=== PATIENT | female | born 1960 | race Caucasian/White ===

== ENCOUNTER 2025-04-24 17:00 | Emergency (ER) | payer OTHER, SELFPAY ==
--- NOTE | ~2025-04-24 | CT_ITS ---
CLINICAL HISTORY: right flank pain CT abdomen and pelvis without contrast Comparison: None provided Findings: The lung bases are clear. Status post cholecystectomy. Solid organs are within normal limits. A punctate nonobstructing stone is noted within the left kidney midpole. No hydronephrosis. No bowel obstruction, pneumoperitoneum, or pneumatosis. Scattered diverticulosis of the descending and sigmoid colon without evidence of diverticulitis. Pelvic contents unremarkable. Normal appendix. The bones are intact. IMPRESSION: No acute findings. A punctate nonobstructing stone is noted within the left kidney midpole. No hydronephrosis bilaterally. Descending and sigmoid colon diverticulosis without evidence of diverticulitis. This document has been electronically signed by: Yariel Mai MD on 04/24/2025 18:46:22
[2025-04-24 17:05] VITALS: BP 156/69; PULSE 75; RESP 20; TEMP 36.4; O2SAT 99; BMI 26.1
--- NOTE | 2025-04-24 17:19 | ED.GENADULT ---
HPI - General Adult General Chief complaint: Abdominal Pain Stated complaint: right flank pain for 24-36 hours/kidney stones? Time Seen by Provider: 04/24/25 21:04 Source: patient Limitations: no limitations History of Present Illness ED Provider: Quita Thomas PA-C HPI narrative: 64-year-old female with a history of asthma presents with right low back pain x1 day. While at work, the patient developed spontaneous right-sided low back pain with radiation around the right lower flank. Pain worse with movement, and she is having spontaneous associated spasm like pain. Denies radiation of pain down the lower extremity, paresthesia, weakness of lower extremity, urinary retention or bowel incontinence. Related Data Previous Rx's ?Medication ?Instructions ?Recorded ketorolac 10 mg tablet 10 mg PO Q6H PRN pain #20 tabs 04/24/25 methocarbamol 750 mg tablet 1,500 mg (2 x 750 mg) PO Q8H PRN 04/24/25 pain, moderate #24 tabs Allergies Allergy/AdvReac Type Severity Reaction Status Date / Time Iodinated Contrast Media Allergy Unknown VOMITING Verified 04/24/25 17:09 (IVP DYE) IVP dye Allergy Unknown vomiting Uncoded 09/16/24 12:19 Review of Systems Review of Systems: Yes all other systems are reviewed and are negative Constitutional: Constitutional: Denies fatigue and Denies fever(s) Cardiovascular: Cardiovascular: Denies chest pain and Denies dyspnea Respiratory: Respiratory: Denies dyspnea Gastrointestinal: Gastrointestinal: Denies constipation, Denies diarrhea, Denies nausea and Denies vomiting Genitourinary: Genitourinary: Denies hematuria, Denies dysuria and Reports flank pain Musculoskeletal: Musculoskeletal: Reports back pain, Denies muscle weakness, Denies numbness, Denies radiating pain into limb and Denies tingling Neurologic: Denies numbness and Denies tingling Endocrine: Endocrine: Denies fatigue [facility] Past Medical History Attestation statement: The following information was validated with the patient. Social History Social History (System 09/16/24 @ 12:19 by An Finney) Advance Directives: No Advance Directives Information Provided: No Do you have a plan to hurt others: No Plan Physical Exam ED Vital Signs: Vital Signs - 24 hr 04/24/25 17:05 04/24/25 21:25 Temperature 97.5 F 97.4 F Pulse Rate 75 68 Respiratory Rate 20 20 Blood Pressure 156/69 H 173/65 H Pulse Oximetry 99 99 Oxygen Delivery Method Room Air Room Air BMI result Body Mass Index 26.1 Const Other: Alert, appears uncomfortable Orientation/consciousness: patient oriented x3 Resp Effort & Inspection: normal respiratory effort Cardio Other: Normal peripheral perfusion Skin Other: Warm dry no rash Neuro General: patient oriented x3, gait normal, no focal motor deficits and CN's II-XI intact bilaterally Psych Other: Cooperative Course Course Course Narrative: Medical screening exam performed. Please refer to detailed history, exam, evaluation, and management by primary provider. No history of kidney stones. Check labs and CT. Medications Administered Discontinued Medications Generic Name Dose Route Start Last Admin Trade Name Freq PRN Reason Stop Dose Admin Ketorolac Tromethamine 15 mg 04/24/25 21:46 04/24/25 22:05 Ketorolac Tromethamine 15 Mg/Ml Vial IM 04/24/25 21:47 15 mg ONCE ONE Administration Methocarbamol 1,500 mg 04/24/25 21:46 04/24/25 22:06 Methocarbamol 750 Mg Tablet PO 04/24/25 21:47 1,500 mg ONCE ONE Administration Medical Decision Making Medical Decision Making [facility] Narrative: 64-year-old female with a history of asthma presents with right low back pain x1 day. While at work, the patient developed spontaneous right-sided low back pain with radiation around the right lower flank. Pain worse with movement, and she is having spontaneous associated spasm like pain. Denies radiation of pain down the lower extremity, paresthesia, weakness of lower extremity, urinary retention or bowel incontinence. No chronic issues History: Per patient I have considered the following differential diagnoses: Lumbar strain, lumbar radiculopathy, cauda equina, compression fracture , renal colic, pyelonephritis, urinary tract infection Plan: The patient discomfort is consistent with musculoskeletal strain, she is having spasm like pain as well. She is not having any radicular symptoms, she has no red flag signs symptoms concerning for cord compression. Screening labs including urinalysis and CT scan of the abdomen and pelvis obtained from triage. No evidence of urinary pathology, unremarkable CT scan of the abdomen. I have independently reviewed the following tests: Labs: No leukocytosis, not anemic, urine not infected CT abdomen and pelvis:MPRESSION: No acute findings. A punctate nonobstructing stone is noted within the left kidney midpole. No hydronephrosis bilaterally. Descending and sigmoid colon diverticulosis without evidence of diverticulitis. Differential Diagnosis Differential Diagnoses: The differential diagnosis associated with the presentation includes See medical decision-making Admission/Observation Consideration of admission/observation: Escalation of care including admission/observation considered Not applicable Lab Data MDM Lab Attestation statement: I reviewed the patient's lab results. 04/24/25 18:37 04/24/25 17:44 Labs: Lab Results 04/24/25 04/24/25 Range/Units 17:44 18:37 WBC 8.6 (4.8-10.8) X10*3/uL RBC 4.68 (4.20-5.50) X10*6/uL Hgb 14.2 (12.0-16.0) g/dl Hct 40.3 (37.0-47.0) % MCV 86.1 (80.0-98.0) fL MCH 30.3 (27.0-33.0) pg MCHC 35.2 H (31.0-35.0) g/dl RDW 12.9 (11.0-16.0) % Plt Count 288 (160-400) X10*3/uL MPV 10.1 (9.4-12.3) fL Immature Gran % (Auto) 0.8 H (0.0-0.4) % Neut % (Auto) 45.4 (45-73) % Lymph % (Auto) 42.5 H (20-40) % Craven % (Auto) 7.1 (2-11) % Eos % (Auto) 3.4 (0-4) % Baso % (Auto) 0.8 (0-2) % Lymph # (Auto) 3.7 (1.2-4.9) X10*3/uL Craven # (Auto) 0.6 (0.1-1.2) X10*3/uL Eos # (Auto) 0.3 (0.0-0.4) X10*3/uL Baso # (Auto) 0.1 (0.0-0.2) X10*3/uL Abs Immat Gran (auto) 0.07 H (0.00-0.03) X10*3/uL Absolute Neuts (auto) 3.9 (2.0-8.3) x10*3/uL Absolute Nucleated RBC 0.000 (0.0-0.012) X10*3/uL Nucleated RBC % (auto) 0.0 (0.0-0.2) /100WBC Sodium 140 (135-145) mmol/L Potassium 4.0 (3.3-5.1) mmol/L Chloride 108 (96-108) mmol/L Carbon Dioxide 22 (22-29) mmol/L Anion Gap 14 (12-20) BUN 12 (9-16) mg/dL Creatinine 0.68 (0.5-1.4) mg/dL Estim Creat Clear Calc 81.9 Estimated GFR > 60 Random Glucose 107 (60-115) mg/dL Calcium 8.9 (8.4-10.2) mg/dL Total Bilirubin 0.4 (0.0-1.0) mg/dL Direct Bilirubin 0.1 (0.0-0.5) mg/dL AST 31 (5-31) U/L ALT 28 (0-31) U/L Alkaline Phosphatase 116 (39-117) U/L Total Protein 7.5 (6.5-8.0) g/dL Albumin 4.2 (3.5-5.0) g/dL Lipase 19 (8-78) U/L Urine Color Yellow Urine Appearance Clear Urine pH 6.0 (5.0-9.0) Ur Specific [place] 1.020 (1.005-1.025) Urine Protein Negative (Neg-Trace) mg/dL Urine Glucose (UA) Negative (Negative) mg/dL Urine Ketones Negative (Negative) mg/dL Urine Blood Negative (Negative) Urine Nitrite Negative (Negative) Ur Leukocyte Esterase Negative (Negative) Radiology Impression Discussion of test interpretation with radiology: I have reviewed the radiologist's reading. Discharge Plan Discharge Clinical Impression: Right lumbar pain Patient Disposition: Home, Self-Care Instructions: Acute Low Back Pain (ED) Additional Instructions: All of your screening labs were normal, your urine is not infected. There were no abnormalities noted on the CT scan of the abdomen and pelvis. Your pain at this point seems to be most consistent with musculoskeletal strain. See home care instructions. Use the ketorolac as directed this is an anti-inflammatory take it with food. Use the methocarbamol as needed for further pain, this is a muscle relaxant. This medication will cause drowsiness, do not drive or operate machinery while taking the medication. Prescriptions: New ketorolac 10 mg tablet 10 mg PO Q6H PRN (Reason: pain) Qty: 20 0RF Rx Instructions: maximum total duration of 5 days from all oral, intranasal, or parenteral formulations. The patient received an intramuscular dose of Toradol here in the emergency room. methocarbamol 750 mg tablet 1,500 mg PO Q8H PRN (Reason: pain, moderate) Qty: 24 0RF Stand Alone Forms: Work/School Release Interventions: ED Discharge Assessment Last Done: 04/24/25 22:12 Discharge Date/Time: 04/24/25 22:13 Print Language: Bhutanese
--- OUTSIDE RECORDS SUMMARY | 2025-04-24 17:44 | XMS_ITS | Clinical Summary ---
Author Organization [address] Address [address] [place] [phone] Phone Care Team Providers Care Beater Engineer Name Role Phone Isma Fan MD Primary Care Provider [phone] Medications albuterol HFA (PROAIR HFA ; PROVENTIL HFA ; VENTOLIN HFA) 90 mcg/actuation inhaler INHALE 2 PUFFS EVERY 6 HOURS FOR 30 DAYS 10/02/2023 Active azelaic acid (FINACEA) 15 % gel 06/22/2024 Active levothyroxine (SYNTHROID, LEVOTHROID) 50 mcg tablet TAKE 1 TABLET BY MOUTH DAILY SATURDAY THROUGH SATURDAY. TAKE 2 TABLETS DAILY ON SUNDAYS. 06/12/2024 Active lisinopriL (PRINIVIL,ZESTR IL) 20 mg tablet Take 1 tablet (20 mg total) by mouth 1 (one) time each day. for 30 days 04/06/2024 Active metroNIDAZOLE (METROCREAM) 0.75 % cream APPLY A THIN LAYER TO THE FACE ONCE TO TWICE DAILY. 02/17/2024 Active simvastatin (ZOCOR) 20 mg tablet 06/21/2024 Active Active Problems Problem Noted Date Diagnosed Date Granulation tissue of vaginal cuff 06/22/2024 Assessment & Plan (06/22/2024 3:58 PM EST): Cauterized with silver nitrate. Will await anything in the vagina for 2 weeks. Surgical History Surgery Date Site/Laterality Comments HYSTERECTOMY PROCEDURE: HISTORICAL HYSTERECTOMY; COMMENT: Laparoscopic supracervical hysterectomy, right salpingo-oophorectomy for bleeding, pain. Left ovary remians in-situ. CHOLECYSTECTOMY PROCEDURE: [place] LAPAROSCOPY SURG CHOLECYSTECTOMY OTHER SURGICAL HISTORY PROCEDURE: DECOMPRESS DISC RF LUMBAR; COMMENT: Disectomy & fusion. Anterior abdominal approach. OTHER SURGICAL HISTORY Left PROCEDURE: [place] ARTHROSCOPY ELBOW SURGICAL DEBRIDEMENT LIMITED OTHER SURGICAL HISTORY Left PROCEDURE: [place] SURGICAL ARTHROSCOPY SHOULDER XTNSV DBRDMT 3+ NECK SURGERY PROCEDURE: HISTORICAL NECK SURGERY; COMMENT: Fusion SECTION PROCEDURE: HISTORICAL DELIVERY; COMMENT: x 1 Medical History Medical History Date Comments Hypothyroidism DX:Hypothyroidis m Hypertension DX:Hypertension Asthma DX:Asthma Hyperlipidemia 05/09/2017 DX:Hyperlipidemi a Prediabetes 02/18/2023 DX:Prediabetes Gastroesophageal reflux disease 05/09/2017 DX:Gastroesophageal reflux disease Hepatic steatosis 02/18/2023 DX:Hepatic anna marie atosis Hepatomegaly 02/18/2023 DX:Hepatomegaly Migraines 08/03/2015 DX:Migraines Left nephrolithiasis 02/18/2023 DX:Left nep hrolithiasis Osteoarthritis of left shoulder 07/06/2021 DX:Osteoarthritis of left shoulder; COMMENT: s/p arthroscopic surgery Cervical radiculopathy 05/09/2017 DX:Cervic al radiculopathy Benign paroxysmal positional vertigo 02/08/2023 DX:Benign paroxysmal positional vertigo Eczema 05/29/2022 DX:Eczema Family History Medical History Relation Name Comments Prostate cancer Brother 1 x 1 Prostate cancer Brother 2 x 2 HTN, liver d isease (+EtOH) Prostate cancer Father HTN Breast cancer Maternal Grandmother unilat eral Hypertension Mother Breast cancer Sister x 1 unilateral, BR CA negative Pancreatic cancer Neg Hx Relation Name Status Comments Brother 1 x 1 Alive Brother 2 x 2 Daughter Alive Father Maternal Grandfather Maternal Grandmother Mother Paternal Grandfather Paternal Grandmother Sister x 1 Alive Social History Tobacco Use Types Packs/Day Years Used Date Smoking Tobacco: Never Smokeless Tobacco: Never Alcohol Use Standard Drinks/Week Comments Not Currently 0 (1 standard drink = 0.6 oz pur e alcohol) Comments Unknown Sex and Gender Information Value Date Recorded Sex Assigned at Not on file Legal Sex Female 9:31 PM EDT Gender Identity Not on file Sexual Orientation Not on file Obstetrics History Last Filed Vital Signs Vital Sign Reading Time Taken Comments Blood Pressure 119/72 05/05/2024 1:33 PM EDT Pulse 79 05/05/2024 1:33 PM EDT Temperature - - Respiratory Rate - - Oxygen Saturation - - Inhaled Oxygen Concentration - - Weight 73.3 kg (161 lb 9.6 oz) 04/09/2024 8:37 A M EDT Height 162.6 cm (5' 4 ) 12/25/2023 11:49 AM EDT Body Mass Index 27.74 12/25/2023 11:49 AM EDT Plan of Treatment Upcoming Encounters Date Type Department Care Team (Late st Contact Info) Description 10/19/2025 3:00 PM EDT Office Visit Obstetrics and Gynecology - [place] [address] [place] [address] Delores [place], [facility] [address] [place] [address] Health Maintenance Due Date Last Done Comments Hepatitis A Vaccines (1 of 2 - Risk 2-dose series) 1981 Zoster Vaccines (1 of 2) 2012 Pneumococcal Vaccine: 50+ Years (2 of 2 - PCV) 05/28/2015 05/28/2014 Colorectal Cancer Screening: Colonoscopy 12/08/2021 HIV Screening 12/08/2021 Hepatitis C Screening 12/08/2021 Social Influencers of Health Screening 12/08/2021 RSV Immunization Adult Patients (1 - Risk 60-74 years 1-dose series) 2022 Depression Screening 07/22/2024 Influenza Vaccine (#1) 2025 3, 04/29/2021, 03/23/2020, Additional history exists DTaP,Tdap,and Td Vaccines (3 - Td or Tdap) 09/25/2025 09/26/2015, 07/22/1999 Hypertension/CHF/CAD Annual BMP Blood Test 11/16/2025 11/16/2024 Breast Cancer Screening 12/24/2025 12/25/19 24, 12/25/2023, 07/27/2022, Additional history exists Cervical Cancer Screening: Pap Smear 12/24/2026 12/25/2023, 03/15/2022 Cholesterol Screening (Lipid Panel) 11/16/2029 11/16/2024, 05/28/2024 MMR Vaccines Aged Out 11/04/2015, 09/29/2015 No lo nger eligible based on patient's age to complete this topic Hepatitis B Vaccines Completed 03/05/2017, 11/04/2015, 09/29/2015 COVID-19 Vaccine Completed 06/17/2024, , 05/25/2021, Additional history exists HIB Vaccines Aged Out No longer eligi ble based on patient's age to complete this topic HPV Vaccines Aged Out No longer eligi ble based on patient's age to complete this topic IPV Vaccines Aged Out No longer eligi ble based on patient's age to complete this topic Meningococcal ACWY Vaccine Aged Out N o longer eligible based on patient's age to complete this topic Meningococcal B Vaccine Aged Out No l onger eligible based on patient's age to complete this topic RSV Immunization Patients Under 20 months Aged Out No longer eligible based on patient's age to complete this topic Varicella Vaccines Aged Out No longer eligible based on patient's age to complete this topic Procedures Procedure Name Priority Date/Time Associated Diagnosis Comments CREATININE, SERUM Routine 11/16/2024 8:5 2 AM EDT 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 Pure hypercholesterolemi a Essential hypertension, malignant LIPID PANEL WITH REFLEX TO DIRECT LDL Routine 11/16/2024 8:52 AM EDT 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 Pure hypercholesterolemi a Essential hypertension, malignant SCREENING MAMMOGRAPHY BI 2-VIEW BREAST INC CAD Routine 12/25/2023 8:55 AM EDT Encounter for screening mammogram for malignant neoplasm of breast PAP SMEAR Routine 12/25/2023 from Last 3 Months or Most Recently Relevant to Health Maintenance Results * (ABNORMAL) Lipid panel with reflex to direct LDL (11/16/2024 8:52 AM EDT) Cholesterol 154 0 - 200 mg/dL LAB CHEMISTRY METHOD 11/16/2024 5:18 PM EDT [facility] Triglycerides 231(H) 0 - 150 mg/dL LAB CHEMISTRY METHOD 11/16/2024 5:18 PM EDT [facility] HDL 38(L) >=40 mg/dL LAB CHEMISTRY METHOD 11/16/2024 5:18 PM EDT [facility] LDL Calculated 70 0 - 100 mg/dL LAB CHEMISTRY METHOD 11/16/2024 5:18 PM EDT [facility] VLDL Cholesterol Robson 46.2 mg/dL LAB CHEMISTRY METHOD 11/16/2024 5:18 PM EDT [facility] Non HDL Chol. (LDL+VLDL) 116 <145 mg/dL LAB CHEMISTRY METHOD 11/16/2024 5:18 PM EDT [facility] Chol/HDL Ratio 4.1 0.0 - 4.4 LAB CHEMISTRY METHOD 11/16/2024 5:18 PM EDT [facility] Blood Venous blood specimen / Unknown Venipuncture / Unknown 11/16/2024 8:52 AM EDT 11/16/2024 8:52 AM EDT us Isma Fan MD LAB BLOOD ORDERABLES Final Resu lt [facility] [address] [place] [address], * Creatinine (11/16/2024 8:52 AM EDT) Creatinine 0.81 0.50 - 1.10 mg/dL LAB CHEMISTRY METHOD 11/16/2024 5:18 PM EDT [facility] eGFR 82 >=60 mL/min/1. 73m2 LAB CHEMISTRY METHOD 11/16/2024 5:18 PM EDT [facility] Comment:Calculation based on the Chronic Kidney Disease Epidemiology Collaboration (CKD-EPI) equation refit without adjustment for race. Blood Venous blood specimen / Unknown Venipuncture / Unknown 11/16/2024 8:52 AM EDT 11/16/2024 8:52 AM EDT us Isma Fan MD LAB BLOOD ORDERABLES Final Resu lt [facility] [address] [place] [address], * SCREENING MAMMOGRAPHY BI 2-VIEW BREAST INC CAD (12/25/2023 8:55 AM EDT) Anatomical Region Laterality Modality Radiographic Verenice ging 11/25/2023 4:52 PM EDT Narrative 12/25/2023 3:16 PM EDT This is a summary report. The complete report is available in the patient's medical record. If you cannot access the medical record, please contact the sending organization for a detailed fax or copy. Addendum created to correct the BI-RADS category. BI-RADS: Category 1: Negative Study: SCREENING MAMMOGRAPHY BI 2-VIEW BREAST INC CAD Technique: Bilateral full-field digital screening mammography is obtained and read in conjunction with computer aided detection. Tomosynthesis as well as 2D C-View imaging were obtained. Comparison: Comparison made to multiple prior, most recent July 27, 2022, and most remote February 20, 2017. Breast composition: The breast tissue is heterogeneously dense, which may obscure small masses. Bilateral breasts: No significant masses, suspicious calcifications or other abnormalities are seen in either breast. IMPRESSION: Impression: Bilateral breasts: Negative, no specific mammographic evidence of malignancy. Normal interval follow-up is recommended in 12 months. BI-RADS: Category 4: Suspicious Procedure Note Zahira Mcdonnell MD - 05/06/2024 This is a summary report. The complete report is available in thepatient's medical record. If you cannot access the medical record, pleasecontact the sending organization for a detailed fax or copy. Addendum created to correct the BI-RADS category. BI-RADS: Category 1: Negative Study: SCREENING MAMMOGRAPHY BI 2-VIEW BREAST INC CAD Technique: Bilateral full-field digital screening mammography is obtainedand read in conjunction with computer aided detection. Tomosynthesis aswell as 2D C-View imaging were obtained. Comparison: Comparison made to multiple prior, most recent July, and most remote February 20, 2017. Breast composition: The breast tissue is heterogeneously dense, which mayobscure small masses. Bilateral breasts: No significant masses, suspicious calcifications orother abnormalities are seen in either breast. IMPRESSION: Impression: Bilateral breasts: Negative, no specific mammographic evidence ofmalignancy. Normal interval follow-up is recommended in 12 months. BI-RADS: Category 4: Suspicious us Svetlana Cross MD IMG XR PROCEDURE S Edited Result - Final * Pap smear (12/25/2023) 12/25/2023 Narrative HISTORICAL TESTING LAB RESULTING AGENCY - 01/01/2024 6:50 AM EDT [id number] THINPREP PAP, IMAGED: NEGATIVE FOR SQUAMOUS INTRAEPITHELIAL LESION AND MALIGNANCY IVY CAMERON(ASCP) (CASE ELECTRONICALLY SIGNED 12 31 2023) RESULT OF APTIMA HIGH RISK HPV ASSAY: HIGH RISK HPV: POSITIVE (SEROTYPES 16,18,31,33,35,39,45,51,52,56,58,59,66,68) RESULTS OF APTIMA HPV 16 AND 18/45 GENOTYPE ASSAY: HPV 16: POSITIVE HPV 18/45: NEGATIVE COMPLETED ON 2024-01-01 ADEQUACY: SATISFACTORY ENDOCERVICAL/TRANSFORMATION ZONE COMPONENT ABSENT. SOURCE: THINPREP PAP HPV ANY DX: REFLEX 16 AND 18, CERVICAL, IMAGED CLINICAL INFORMATION: HPV ANY DIAGNOSIS. PAP HX POSITIVE ASCUS, [Z12.4] us Bhumi Amaya MD LAB CYTOLOGY ORDERABLES Fin al Result HISTORICAL TESTING LAB RESULTING AGENCY from Last 3 Months or Most Recently Relevant to Health Maintenance Insurance [employer] Care Teams Beater Engineer Relationship Specialty Start Date End Date Isma Fan MD [address] [place], [place] PCP - General 02/18/24
--- OUTSIDE RECORDS SUMMARY | 2025-04-24 17:44 | XMS_ITS | Patient Health Record ---
Author Organization [facility] Address [address] [place] [address] Care Team Providers Care Metalizing Machine Operator Automatic Name Role Phone Maldonado (RETIRED) Usman REYNOSO Primary Care Provider Unavailable Gary Tapia Unavailable [phone] Allergies Allergen (clinical drug ingredient) Drug/Non Drug Allergy documented on EMR Reaction Allergy Type Onset Date Status MOLD (uncoded) Unknown Allergy Activ e IVP DYE (uncoded) Unknown Allergy Ac tive Reason For Referral No Information Medications Medication SIG (Take, Route, Frequency, Duration) Notes Start Date End Date Status dilTIAZem HCl ER Coated Beads 240 MG TAKE 1 CAPSULE BY MOUTH EVERY DAY Oral for 30 Active Lisinopril 10 MG TAKE 1 TABLET BY MARILUZ TH EVERY DAY Oral for 30 Active Estring 2 MG INSERT 1 VAGINAL RIN G(S) EVERY 3 MONTHS BY VAGINAL ROUTE. Vaginal for 84 Active Imodium A-D 2 MG 1 capsule as needed Orally Four times a day Active Levothyroxine Sodium 50 MCG TAKE 1 TABLE T BY MOUTH EVERY DAY Oral for 90 Active Omeprazole 20 MG TAKE 1 CAPSULE BY MO UTH TWICE A DAY DIRECTED Oral for 90 Active Immunizations Vaccine Route Administration Date Status Comme nts Influenza Unknown 04/21/2018 Administered Social History Tobacco Use: Social History Observation Description Date Details (start date - stop date) Former Smoker NA - NA Tobacco Use/Smoking Question Answer Notes Patient is a former smoker When did you stop smoking? 25-30 years ago How long has it been since you last smoked? > 10 years Alcohol Screen Question Answer Notes Did you have a drink contain ing alcohol in the past year? Yes How often did you have a dri nk containing alcohol in the past year? Monthly or less (1 point) How many drinks did you have on a typical day when you were drinking in the past year? 1 or 2 drinks (0 point) How often did you have 6 or more drinks on one occasion in the past year? Never (0 point) Points 1 Interpretation Negative Section Notes: Nonsmoker; no sig alcohol Problems Problem Type SNOMED Code ICD Code Onset Dates Problem Status W/U Status Risk Notes Problem 124538886 Eosinophilia (D72.1) Active confirmed Problem 953337705 Elevated liver enzymes (R74.8) Active confirmed Problem 800871419 Abdominal pain, RUQ (R10.11) Active confirmed Problem 77975227 Diarrhea, unspecified type (R19.7) Active confirmed Plan Of Treatment No Information Insurance Providers Payer Name Payer Address Payer Phone Subscriber Number Group Number Insured Name Patient Relationship to Insured Coverage Start Date Coverage End Date [employer] [address] [address] [place] [address] YORDY MADERA Self - patient is the insured Medical (General) History Medical History History ICD Code Hypertension Seasonal allergies Denies PA,DM,CVA,Lung disease,renal dise ase Asthma 2 kidney stones in left kidney no sympto ms EGD in 2006 ERCP with sphincterotomy in 2008 WNL at [facility] Hypothyroidism GERD Reports neg. colonoscopy in approx [address] Hernandez Surgical History Surgery Date(Month/Year) cervical fusion 2016 lumbar fusion 2012 discectomy lower back 2011 hysterectomy 2010 cholecystectomy 2011 1992 oopherectomy 2008
--- OUTSIDE RECORDS SUMMARY | 2025-04-24 17:44 | XMS_ITS | Patient Health Record ---
Author Organization [facility] Address [address] [facility] [address] [place] [address] Care Team Providers Care Keg Washer Name Role Phone OdilonKevin Primary Care Provider Unavailabl e Allergies Allergen (clinical drug ingredient) Drug/Non Drug Allergy documented on EMR Reaction Allergy Type Onset Date Status IVP Dye (IV Contrast Dye) (uncoded) Unknown Allergy Active seasonal (uncoded) Unknown Allergy A ctive Reason For Referral No Information Medications Medication SIG (Take, Route, Frequency, Duration) Notes Start Date End Date Status Albuterol Sulfate (2.5 MG/3ML) 0.083% 3 mL as needed Inhalation every 4 hrs Active Tacrolimus 0.1 % 1 application Externally Once a day Not-Taking Levothyroxine Sodium 50 MCG 1 tablet in the morning on an empty stomach Orally Once a day Active Albuterol Sulfate 108 (90 Base) MCG/ACT 2 puffs as needed Inhalation every 6 hrs Active Diltiazem HCl CR 240MG Not -Taking Lisinopril 10 MG 1 tablet Orally Once a day Active PARoxetine HCl 10 MG 1 tablet in the mor desmond Orally Once a day Not-Taking Problems Problem Type SNOMED Code ICD Code Onset Dates Problem Status W/U Status Risk Notes Problem Acquired hallux rigidus (5358390) Hallux rigidus of right foot (M20.21) Active confirmed Plan Of Treatment Pending Test Test Name Order Date X ray : Foot, right 3v 02/21/2022 DRAIN/INJECT, SMALL JOINT/BURSA 02/22/20 22 Insurance Providers Payer Name Payer Address Payer Phone Subscriber Number Group Number Insured Name Patient Relationship to Insured Coverage Start Date Coverage End Date [employer] [address] [address] [place] [address] [id number] Knightly, Yoselin Self - patient is the insured Medications Administered Medication Instructions Date of Administration Dosage Notes Dexamethasone 02/21/2022 0.5 mL Kenalog 02/21/2022 0.5 mL Medical (General) History Medical History History ICD Code acute pain of left shoulder- possible ac [place] [facility] tendinitis osteoarthritis of left shoulder s/p arth roscopic surgery vasomotor symptoms due to menopause vulvar atrophy vulvar lesion allergic rhinitis asthma cervical radiculopathy gastroesophageal reflux disease hyperlipidemia insomnia hypothyroidism migraines hypertension Surgical History Surgery Date(Month/Year) decompress Disc RF lumbar left elbow arthroscopy/ debridement hysterectomy- supracervical for pain, no findings right oophorectomy- pelvic pain laparoscopy cholecystectomy arthroscopy left shoulder/ debridement 3 + 1991 Hospitalization History Reason Date(Month/Year) asthma hysterectomy back surgery (girl) 1995 (girl) 1991
--- OUTSIDE RECORDS SUMMARY | 2025-04-24 17:44 | XMS_ITS ---
Author Name [facility] Organization Unknown Care Team Organization Name Specialty Phone Email Start Date End Da te [facility] NULL Primary Care 05/29/2022 03/09/2024
[2025-04-24 17:58] LABS: Appearance Urine Clear; Glucose Urine UA Negative (Negative); PH 6.0 (5.0-9.0); Specific Gravity - Urine 1.020 (1.005-1.025)
[2025-04-24 18:11] LABS: Alanine Aminotransferase 28 U/L (0-31); Albumin Level 4.2 g/dL (3.5-5.0); Alkaline Phosphatase 116 U/L (39-117); Anion Gap 14 (12-20); Aspartate Amino Transferase 31 U/L (5-31); Blood Urea Nitrogen 12 mg/dL (9-16); Calcium 8.9 mg/dL (8.4-10.2); Carbon Dioxide 22 mmol/L (22-29); Chloride 108 mmol/L (96-108); Creatinine Clr Calc Pharmacy 81.9; Estimated Glomerular Filt Rate > 60; Lipase 19 U/L (8-78); Potassium 4.0 mmol/L (3.3-5.1); Sodium 140 mmol/L (135-145); Total Protein 7.5 g/dL (6.5-8.0)
[2025-04-24 18:50] LABS: Hematocrit 40.3 % (37.0-47.0); Hemoglobin 14.2 g/dl (12.0-16.0); Imm Gran Abs Auto 0.07 X10*3/uL (0.00-0.03); Imm Gran Pct Auto 0.8 % (0.0-0.4); Lymphocytes Absolute Auto 3.7 X10*3/uL (1.2-4.9); Mean Corpuscular HGB Conc 35.2 g/dl (31.0-35.0); Mean Corpuscular Hemoglobin 30.3 pg (27.0-33.0); Mean Corpuscular Volume 86.1 fL (80.0-98.0); NRBC Abs Auto 0.000 X10*3/uL (0.0-0.012); NRBC Pct Auto 0.0 /100WBC (0.0-0.2); Platelet Count 288 X10*3/uL (160-400); Red Blood Count 4.68 X10*6/uL (4.20-5.50); White Blood Count 8.6 X10*3/uL (4.8-10.8)
[2025-04-24 21:25] VITALS: BP 173/65; PULSE 68; RESP 20; TEMP 36.3; O2SAT 99
[2025-04-24 22:12] VITALS: BP 173/65; PULSE 68; RESP 20; TEMP 36.3; O2SAT 99
--- NOTE | 2025-04-24 22:13 | PC.NURSE ---
PA/Pt/ this RN aware pt drove herself to the hospital, pt given muscle relaxer on DC, PA aware, pt lives [address] Care team in agreement with pt okay to receive medication in ED and drive home at this time.
== END 2025-04-24 22:13 | disposition home or self-care (01) ==
PROVIDERS: Emergency Provider Emergency Medicine; PCP Internal Medicine
DX: M54.50 Low back pain, unspecified (principal)
CPT/HCPCS: 36415; 74176; 80048; 80076; 81003; 83690; 85025; 96372; 99284; J1885

== ENCOUNTER → 2025-04-24 17:19 | Outpatient (BNV) | payer OTHER, SELFPAY | PROVIDERS: PCP Internal Medicine; Visit Provider Student in an Organized Health Care Education/Training Program | DX: N20.0 Calculus of kidney (principal); K57.30 Diverticulosis of large intestine without perforation or abscess without bleeding | CPT/HCPCS: 74176 ==